=== PATIENT | male | born 1985 | race Caucasian/White ===

== ENCOUNTER 2019-04-12 22:50 | Emergency (ER) | payer BC ==
[~2019-04-12] VITALS: Ht 172.7 cm; Wt 90.1 kg
[2019-04-12] MEDS ORDERED: ONDANSETRON ODT 8 MG ONE (23:41)
[2019-04-13] LABS: MEAN CORPUSCULAR HGB CONC 33.7 g/dL (33.2-36.2); MEAN CORPUSCULAR VOLUME 94.8 fL (81-97); MEAN PLATELET VOLUME 9.4 fL (7.4-10.4); PLATELET COUNT 221 x10^3/uL (130-400); RED BLOOD COUNT 5.08 x10^6/uL (4.38-5.82)
[2019-04-13] LABS: CULTURE INDICATED? YES; MICROSCOPIC INDICATED
[2019-04-13] MEDS ORDERED: ONDANSETRON ODT 8 MG PO ONE
[2019-04-13 00:05] LABS: ALANINE AMINOTRANSFERASE 86 U/L (12-78); ALBUMIN 4.2 g/dL (3.4-5.0); ANION GAP 9 mmol/L (5-15); CALCIUM 9.4 mg/dL (8.5-10.1); CHLORIDE 105 mmol/L (98-107)
[2019-04-13 00:08] LABS: ALKALINE PHOSPHATASE 148 U/L (45-117); CREATININE 1.15 mg/dL (0.7-1.3); TOTAL PROTEIN 8.5 g/dL (6.4-8.2)
[2019-04-13 00:25] LABS: BASOPHILS % (AUTO) 0 % (0-1); EOSINOPHILS # (AUTO) 0.01 x10^3/uL (0-0.4); EOSINOPHILS % (AUTO) 0 % (1-7); LYMPHOCYTES # (AUTO) 1.33 x10^3/uL (1-3.4); LYMPHOCYTES % (AUTO) 9 % (22-44); MD SCAN; MONOCYTES # (AUTO) 1.19 x10^3/uL (0.2-0.8); MONOCYTES % (AUTO) 8 % (2-9); NEUTROPHILS # (AUTO) 12.11 x10^3/uL (1.8-6.8); NEUTROPHILS % (AUTO) 83 % (42-75)
[2019-04-13 00:44] VITALS: BP 126/80
--- NOTE | 2019-04-13 00:44 | NUR ---
VS UPDATED. PT WAS ABLE TO TOLERATE PO CHALLENGE.
--- NOTE | 2019-04-13 00:54 | NUR ---
DR. MEDELLIN IN TO DISCUSS POC WITH PT.
[2019-04-13] MEDS ORDERED: NITROFURANTOIN (MACROBID) 100 MG CAPSULE ONE (00:58)
[2019-04-13] MEDS ORDERED: NITROFURANTOIN (MACROBID) 100 MG CAPSULE PO ONE (01:00)
== END 2019-04-13 01:09 | disposition home or self-care (01) ==
LOC: ED 23:59
DX: N30.00 Acute cystitis without hematuria (principal); B34.9 Viral infection, unspecified; R11.10 Vomiting, unspecified
CPT/HCPCS: 36415; 80053; 81001; 85025; 87086; 99283; Q0162